=== PATIENT | female | born 1965 | race Caucasian/White ===

== ENCOUNTER 2017-05-20 10:06 | Emergency (ER) | payer OTHER ==
[2017-05-20 10:13] VITALS: TEMP 98.1; BMI 33.5
[2017-05-20] MEDS ORDERED: SODIUM CHLORIDE 1,000 ML IV STA (10:28)
[2017-05-20] MEDS ORDERED: KETOROLAC TROMETHAMINE 30 MG/1 ML VIAL IVPUSH ONE (10:28)
--- NOTE | 2017-05-20 10:33 | PDOC ---
History of Present Illness - General Chief Complaint: Respiratory Stated Complaint: WHEEZING Time Seen by Provider: 05/20/17 10:22 History Source: Patient - History of Present Illness Timing/Duration: reports: other Severity: reports: moderate Associated Symptoms: reports: cough, muscle aches. denies: dizziness, earache, facial pain, fever/chills, headache, nasal congestion, nasal drainage, shortness of breath, sinus infection, sore throat, wheezing Past History - Past Medical History Allergies/Adverse Reactions: Allergies Allergy/AdvReac Type Severity Reaction Status Date / Time No Known Allergies Allergy Verified 05/20/17 10:13 Home Medications: Ambulatory Orders NK [No Known Home Medication] 05/20/17 COPD: No HTN: Yes - Suicide/Smoking/Psychosocial Hx Smoking History: Never smoked Hx Alcohol Use: No Drug/Substance Use Hx: No Substance Use Type: None Review of Systems - Review of Systems Constitutional: Yes: Malaise. No: Chills, Fever Respiratory: Yes: Cough. No: Shortness of Breath, Wheezing Cardiac (ROS): No: Chest Pain, Lightheadedness, Palpitations ABD/GI: No: Diarrhea, Nausea, Vomiting, Abdominal cramping Neurological: No: Headache, Dizziness *Physical Exam - Vital Signs Last Vital Signs Temp Pulse Resp BP Pulse Ox 98.1 F 96 H 20 157/98 100 05/20/17 10:09 05/20/17 10:09 05/20/17 10:09 05/20/17 10:09 05/20/17 10:09 - Physical Exam General Appearance: Yes: Appropriately Dressed. No: Apparent Distress HEENT: positive: Normal Voice Neck: positive: Supple. negative: Lymphadenopathy (R), Lymphadenopathy (L) Respiratory/Chest: positive: Lungs Clear, Normal Breath Sounds. negative: Respiratory Distress Cardiovascular: positive: Regular Rate, S1, S2 Gastrointestinal/Abdominal: positive: Soft. negative: Tender Integumentary: positive: Dry, Warm Neurologic: positive: Fully Oriented, Alert, Normal Mood/Affect ED Treatment Course - LABORATORY CBC & Chemistry Diagram: 05/20/17 10:35 05/20/17 10:35 - RADIOLOGY Radiology Studies Ordered: Category Date Time Status CHEST PA & LAT [RAD] Stat Radiology 05/20/17 10:27 Ordered Medical Decision Making - Medical Decision Making 05/20/17 10:28 51-year-old female, history of hypertension, here with generalized body aches with mostly nonproductive cough 4 days. States symptoms started shortly after she went out in the cold without her "during a fire drill at work. Taken Motrin with some relief. Denies shortness of breath, chest pain, nausea, vomiting, diarrhea, rash, fever or chills. Seen by her PMD this a.m., who sent patient in to rule out pneumonia. See exam Viral syndrome, possibly influenza -supportive tx -labs -flu swab -CXR -anticipate discharge 05/20/17 12:45 Labs, x-ray and flu negative. Patient feeling better s/p meds in ED. Will discharge w/ supportive tx at this time *DC/Admit/Observation/Transfer Diagnosis at time of Disposition: Viral syndrome - Discharge Dispostion Disposition: HOME Condition at time of disposition: Improved - Referrals Referrals: Vannesa Holt [Primary Care Provider] - - Patient Instructions Printed Discharge Instructions: DI for Viral Syndrome Additional Instructions: Her chest x-ray, influenza and labs were all negative. You most likely have a nonspecific viral illness. Rest, drink plenty of fluids and take Motrin or Tylenol for pain and/or fever as needed until symptoms improve. Continue to follow-up with your PMD - Post Discharge Activity Forms/Work/School Notes: Back to Work
--- NOTE | 2017-05-20 10:49 | PDOC ---
*Physical Exam - Vital Signs Last Vital Signs Temp Pulse Resp BP Pulse Ox 98.1 F 96 H 20 157/98 100 05/20/17 10:09 05/20/17 10:09 05/20/17 10:09 05/20/17 10:09 05/20/17 10:09 - Physical Exam Comments: 05/20/17 10:49 The patient was examined by [TREVA Weaver] under my direct supervision. I personally evaluated the patient. I concur with the above findings and the plan of care. ED Treatment Course - LABORATORY CBC & Chemistry Diagram: 05/20/17 10:35 05/20/17 10:35 *DC/Admit/Observation/Transfer Diagnosis at time of Disposition: Viral syndrome - Discharge Dispostion Disposition: HOME Condition at time of disposition: Improved - Referrals Referrals: Vannesa Holt [Primary Care Provider] - - Patient Instructions Printed Discharge Instructions: DI for Viral Syndrome Additional Instructions: Her chest x-ray, influenza and labs were all negative. You most likely have a nonspecific viral illness. Rest, drink plenty of fluids and take Motrin or Tylenol for pain and/or fever as needed until symptoms improve. Continue to follow-up with your PMD - Post Discharge Activity Forms/Work/School Notes: Back to Work
[2017-05-20] MEDS ORDERED: KETOROLAC TROMETHAMINE 30 MG/1 ML VIAL ONE (11:10)
[2017-05-20 11:12] LABS: EOS % 0.9 % (0-4.5); HEMATOCRIT 43.6 % (32.4-45.2); HEMOGLOBIN 14.8 GM/dL (10.7-15.3); LYMPH % 28.2 % (8-40); MCH 28.9 pg (25.7-33.7); MCHC 33.9 g/dl (32.0-36.0); MEAN CELL VOLUME 85.4 fl (80-96); MEAN PLT VOLUME 7.8 fl (7.5-11.1); MONO % 14.6 % (3.8-10.2); NEUT % 55.3 % (42.8-82.8); PLATELET COUNT 231 K/MM3 (134-434); RDW 13.2 % (11.6-15.6); WHITE BLOOD COUNT 4.8 K/mm3 (4.0-10.0)
[2017-05-20 11:36] LABS: ALBUMIN 3.8 g/dl (3.4-5.0); ALK PHOS 70 U/L (45-117); ANION GAP 8 (8-16); BILIRUBIN,TOTAL 0.2 mg/dL (0.2-1.0); BLOOD UREA NITROGEN 9 mg/dL (7-18); CALCIUM 8.7 mg/dL (8.5-10.1); CHLORIDE 102 mmol/L (98-107); CO2 30 mmol/L (21-32); CREATININE 0.6 mg/dL (0.55-1.02); GLUCOSE,RANDOM 89 mg/dL (74-106); POTASSIUM 3.9 mmol/L (3.5-5.1); SGOT/AST 20 U/L (15-37); SGPT/ALT 21 U/L (12-78); SODIUM 140 mmol/L (136-145); TOT PROT 7.5 g/dl (6.4-8.2)
[2017-05-20 13:02] VITALS: BP 153/85; PULSE 71
== END 2017-05-20 13:01 | disposition home or self-care (01) ==
LOC: JER 10:06
PROC: 3E0333Z Introduction of Anti-inflammatory into Peripheral Vein, Percutaneous Approach (ICD-10-PCS; principal; 2017-05-20)
DX: B34.9 Viral infection, unspecified (principal); I10 Essential (primary) hypertension
CPT/HCPCS: 36415; 71046-TC; 80053; 84703; 85025; 87804; 96374; 99284-25